=== PATIENT | female | born 1995 | race Caucasian/White ===

== ENCOUNTER 2018-01-20 21:45 | Emergency (ER) | payer OTHER ==
[~2018-01-20] VITALS: Ht 170.2 cm; Wt 90.7 kg
== END 2018-01-20 23:04 | disposition home or self-care (01) ==
LOC: ER 21:45
DX: M77.8 Other enthesopathies, not elsewhere classified (principal)

== ENCOUNTER → 2018-10-16 | Outpatient (CLI) | payer OTHER | END | disposition home or self-care (01) | LOC: MAMO-SONO 08:15 → SONOGRAMA 08:24 | DX: N93.8 Other specified abnormal uterine and vaginal bleeding (principal) ==